=== PATIENT | male | born 1960 | race Two or more races ===

== ENCOUNTER → 2017-01-04 | Outpatient (CLI) | payer BC ==
[~2017-01-04] MED LIST: LORTAB 5/500 TA1 TA1 PO; NO MEDICATIONS; PROTONIX PO
--- NOTE | ~2017-01-04 | MR113 ---
[facility] RADIOLOGY TEXT RESULTS PATIENT: SKIP MTZ LOCATION: [facility] : 64 UNIT #: [id number] AGE: [address]: Jj Jennings MD SEX: M ORDER DR: [id number] [place] [id number] O MR#: [id number] Acc #: [id number] NAME: SKIP MTZ : 1960 SEX: M STUDY DATE/TIME: 01/04/2017 15:14 UNIT: [facility] ROOM: STUDY DESCRIPTION: MR Lumbar Wo Contrast Attending Physician: Jj Jennings M.D. Referring Physician: Jj Jennings M.D. Ordering Physician: Jj Jennings M.D. Primary Care Physician: Jj Jennings M.D. [facility] REPORT This report is preliminary unless electronic signature is present. EXAM Lumbar spine MRI without contrast DATE OF STUDY: 01/04/2017 PROCEDURE Routine unenhanced lumbar spine MRI COMPARISON CT abdomen and pelvis 06/12/2011 HISTORY Worsening low back pain for about 7 weeks left greater than right. FINDINGS There is a dextroscoliosis but no rubina or retrolisthesis. Bone marrow signal is normal and the distal cord and conus are normal in position and appearance. The paraspinous soft tissues are unremarkable. At L1-2, there is no canal or foraminal stenosis. At L2-3, there is a central slightly upward disc extrusion with moderate canal stenosis. It only extends up about 8 mm from the parent disc and there is minimal right and mild left foraminal stenosis. At 3-4, there is a slight disc bulge and right posterolateral disc protrusion. There is moderate right foraminal stenosis and no more than borderline to mild canal stenosis. There is minimal left foraminal narrowing. At 4-5, there is a broad disc bulge and left foraminal disc protrusion. [facility] RADIOLOGY TEXT RESULTS PAT[facility]: SKIP MTZ [id number] 64 UNIT #: [id number] AGE: [address]: Jj Jennings MD SEX: M ORDER DR: There is no canal stenosis. There is moderate or even moderate to severe left foraminal stenosis and borderline to mild right foraminal stenosis. At 5-1, there is no canal stenosis or foraminal stenosis. IMPRESSION In addition to moderate canal stenosis due to central slightly upward extrusion at 2-3 there is a right 3-4 and left 4-5 foraminal stenosis due to foraminal disc protrusion at each level, see above for details.. Dictated by... Forest Quiles M.D. THIS IS AN ELECTRONICALLY VERIFIED REPORT Forest Quiles M.D. at 01/11/2017 5:37 PM RICARDO/yoselyn TD: 01/07/2017 14:51 JOB #: [id number] [facility] REPORT Page 1 of 1
== END | disposition home or self-care (01) ==
LOC: SMRI 14:50
DX: M51.16 Intervertebral disc disorders with radiculopathy, lumbar region (principal); M48.06 Spinal stenosis, lumbar region
CPT/HCPCS: 72148